=== PATIENT | female | born 1940 | race African-American/Black ===

== ENCOUNTER 2016-07-26 10:03 | Outpatient (RCR) | payer MEDICARE, OTHER ==
[~2016-07-26 10:03] MED LIST: ALEVE220 M2 PO; AMLODIPINE BESY10 MG ORAL; BP med; DOCUSATE SODIU250 MG ORAL; FOLIC ACID1 MG ORAL; HYDRALAZINE HC100 MG ORAL; HYDROCODON-ACE1 EA16 ORAL; LINZESS145 MCG PO; LISINOPRIL20 MG ORAL; LORATADINE10 M2 PO; METOPROLOL TART25 MG ORAL; PAMELOR10 MG ORAL; PRILOSEC OTC20 MG ORAL; VITAMIN D1000 UNI1 ORAL
== END 2016-08-07 | disposition home or self-care (01) ==
LOC: PTY 10:03
DX: M51.36 Other intervertebral disc degeneration, lumbar region (principal)
CPT/HCPCS: 97110; G0283

== ENCOUNTER → 2016-11-01 | Outpatient (CLI) | payer MEDICARE, OTHER ==
--- NOTE | 2016-11-01 13:31 | GI Progress Note ---
Assessment/Plan Problems: (1) Constipation ICD Codes: K59.00 - Constipation, unspecified SNOMED: 51539950 (2) Hepatitis C ICD Codes: B19.20 - Unspecified viral hepatitis C without hepatic coma SNOMED: 52809515 (3) H/O Spinal surgery ICD Codes: Z98.89 - Other specified postprocedural states SNOMED: 47629898, 555437040 Status: stable Status Narrative Seen with Dr. Forrester. Assessment/Plan Flex sig with banding scheduled 11/16/16. - CLD & [employer] prep instructions given. lab draw: repeat Hep C quant cont linzess Subjective Subjective constipation >> linzess working well, but occasionally gets stomach cramps Objective T 98 BP 124/58 P 78 99 RA General Appearance: no apparent distress, alert Cardiovascular: normal rate Respiratory/Chest: normal breath sounds, no respiratory distress Abdominal Exam: normal bowel sounds, non tender, soft Extremities: normal range of motion Lulu Rice N.P. Nov 01, 2016 13:31
[2016-11-01 14:42] VITALS: BP 124/58
== END | disposition home or self-care (01) ==
LOC: PAN 12:48
DX: K59.00 Constipation, unspecified (principal); B19.20 Unspecified viral hepatitis C without hepatic coma; Z98.890 Other specified postprocedural states
CPT/HCPCS: 99211

== ENCOUNTER 2016-12-14 09:43 | Day surgery (SDC) | payer MEDICARE, OTHER ==
[~2016-12-14] VITALS: Ht 165.1 cm; Wt 74.8 kg
[2016-12-14 10:20] VITALS: BP 119/55
--- NOTE | 2016-12-14 11:50 | Pre-Procedure Note/Attestation ---
Pre-Procedure Note/Attestation Complete Prior to Procedure Planned Procedure: not applicable Procedure Narrative: flex sig Indications for Procedure Pre-Operative Diagnosis: rectal bleed Attestation I attest that I discussed the nature of the procedure; its benefits; risks and complications; and alternatives (and the risks and benefits of such alternatives ), prior to the procedure, with the patient (or the patient's legal marketing development representative). I attest that, if there was a reasonable possibility of needing a blood transfusion, the patient (or the patient's legal marketing development representative) was given the [facility] standardized written summary, pursuant to the Louie Numidia Blood Safety Act ([place] Health and Safety Code # 1645, as amended). I attest that I re-evaluated the patient just prior to the surgery and that there has been no change in the patient's H&P, except as documented below: MADAN CAIN Dec 14, 2016 11:50
--- NOTE | 2016-12-14 11:50 | Short Stay Surgery H&P ---
History of Present Illness History of Present Illness Chief Complaint rectal bleed HPI Sophia Collins is a 76 year old female who was admitted on for Hemorrhoids Patient History Allergies: Coded Allergies: No Known Allergies (Unverified , 05/17/15) PAST MEDICAL HISTORY: (1) H/O Spinal surgery (2) Constipation (3) Hepatitis C (4) HTN (hypertension) (5) Hepatitis B vaccination not up to date Past Surgeries: Social History: Medication History Scheduled Amlodipine Besylate* (Amlodipine Besylate*), 10 MG ORAL DAILY, (Reported) Lisinopril (Lisinopril*), 40 MG ORAL DAILY, (Reported) Metoprolol Tartrate* (Metoprolol Tartrate*), 25 MG ORAL EVERY 12 HOURS, ( Reported) Review of Systems Cardiovascular: Reports: no symptoms Respiratory: Reports: no symptoms Skeletal: Reports: no symptoms Gastrointestinal: Reports: no symptoms Genitourinary: Reports: no symptoms Neurologic: Reports: no symptoms Endocrine: Reports: no symptoms Hematologic: Reports: no symptoms Physical Exam Vital Signs Last Vital Signs Date Time Temp Pulse Resp B/P Pulse Ox O2 Delivery O2 Flow Rate FiO2 12/14/16 10:20 97.6 56 20 119/55 98 Room Air Skin: normal HENT: normal Heart: normal Lungs: normal Abdomen: normal Extremities: normal Plan Plan of Care flex sig Final Diagnosis: Attestation Are the patient's medical conditions optimized for surgery? Attestation Response: yes MADAN CAIN Dec 14, 2016 11:50
[2016-12-14 12:12] VITALS: BP 132/63
[2016-12-14 12:17] VITALS: BP 140/70
[2016-12-14 12:22] VITALS: BP 137/69
[2016-12-14 12:30] LABS: BASOPHILS % (AUTO) 0.7 % (0.0-2.0); EOSINOPHILS % (AUTO) 0.7 % (0.0-3.0); LYMPHOCYTES % (AUTO) 25.8 % (20.0-45.0); MEAN CORPUSCULAR HEMOGLOBIN 31.2 PG (27.0-31.0); MEAN CORPUSCULAR HGB CONC 32.8 G/DL (32.0-36.0); MEAN CORPUSCULAR VOLUME 95 FL (80-99); MEAN PLATELET VOLUME 8.5 FL (6.5-10.1); MONOCYTES % (AUTO) 6.6 % (1.0-10.0); NEUTROPHILS % (AUTO) 66.2 % (45.0-75.0); PLATELET COUNT 114 K/UL (150-450); RED BLOOD COUNT 4.32 M/UL (4.20-5.40); RED CELL DISTRIBUTION WIDTH 13.7 % (11.6-14.8); WHITE BLOOD COUNT 4.7 K/UL (4.8-10.8)
[2016-12-14] MEDS ORDERED: Norco 5mg/325mg tab ORAL ONE (12:30)
--- NOTE | 2016-12-14 12:30 | Endoscopy Procedure Note ---
Endoscopy Procedure Note Indication for Procedure: rectal bleed Procedures Performed: flexible sigmoidoscopy Operative Findings/Diagnosis: hemorrhoids Specimen: none Pt Tolerated Procedure Well: Yes Estimated Blood Loss: none Anesthesiologist: none Implant(s) used?: No 50 yrs or older w/o bx or poly: Not Applicable 10yrs. F/U not recommended: Not Applicable MADAN CAIN Dec 14, 2016 12:30
[2016-12-14 12:35] VITALS: BP 138/72
[2016-12-14 12:42] LABS: ALANINE AMINOTRANSFERASE 8 U/L (3-33); ALBUMIN/GLOBULIN RATIO 1.1 (1.0-2.7); ANION GAP 14 (5-15); ASPARTATE AMINO TRANSFERASE 16 U/L (5-40); CALCIUM 9.4 mg/dL (8.6-10.2); CARBON DIOXIDE 26 mEQ/L (20-30); CHLORIDE 105 mEQ/L (98-107); CREATININE 0.7 mg/dL (0.5-0.9); HEMOLYSIS 4; SODIUM 145 mEQ/L (135-145); TOTAL PROTEIN 7.6 g/dL (6.6-8.7)
[2016-12-14 13:05] VITALS: BP 141/69
--- NOTE | 2016-12-14 19:00 | Procedure Note ---
DATE OF PROCEDURE: 12/14/2016 SURGEON: Rob Forrester M.D. PROCEDURE: Flexible colonoscopy with banding of hemorrhoids. ANESTHESIA: No anesthesia was given. INDICATIONS: Internal hemorrhoids with bleeding. The procedure, risks, benefits, and possible consequences, including hemorrhage, aspiration, perforation and infection, and alternative treatments, were explained to the patient/legal guardian by Dr. Rob Forrester and the patient/legal guardian understood and accepted these risks. PROCEDURE IN DETAIL: First, a rectal exam was performed, which was positive for external and internal hemorrhoids. Then scope was advanced from rectum into the sigmoid colon. Retroflexion was performed in the rectum, which showed evidence of at least 2 or 3 large internal hemorrhoids. At this time, the scope was removed, banding device was placed, and the scope was reintroduced again into the rectum and total of 2 bands were placed in the rectum. The patient tolerated the procedure without any complication. SUMMARY OF FINDINGS: 1. Internal hemorrhoids and external hemorrhoids. 2. Banding of internal hemorrhoids x2. RECOMMENDATIONS: 1. Pain management. 2. Bowel regimen. 3. The patient to call office if she has any pain or bleeding. Rob Forrester M.D. DR: ALECIA JOB#: [id number] CC:
[2016-12-18 18:13] LABS: HEPATITIS C QUANT HCV Not Detected IU/mL (.)
== END 2016-12-14 13:50 | disposition home or self-care (01) ==
LOC: GAS 09:43
DX: K64.8 Other hemorrhoids (principal); K64.4 Residual hemorrhoidal skin tags; K59.00 Constipation, unspecified; I10 Essential (primary) hypertension; Z86.19 Personal history of other infectious and parasitic diseases
CPT/HCPCS: 36415; 80053; 85025; 87522; 93005

== ENCOUNTER 2016-12-24 13:01 | Outpatient (CLI) | payer MEDICARE, OTHER ==
--- NOTE | 2016-12-24 13:54 | GI Progress Note ---
Assessment/Plan Assessment/Plan Rx Anusol HC cream refer to Dr. Amin for pain mgmt RTC x 3 month Endoscopy Procedure Note Indication for Procedure: rectal bleed Procedures Performed: flexible sigmoidoscopy with banding x 2 Operative Findings/Diagnosis: hemorrhoids MADAN CAIN - Dec 14, 2016 12:30 Subjective Subjective rectal pain better still minimal bleeding after BM taking linzess no stool softeners Objective T 98.1 BP 100/53 P 58 100 RA General Appearance: no apparent distress, alert Cardiovascular: normal rate Respiratory/Chest: normal breath sounds, no respiratory distress Abdominal Exam: normal bowel sounds, non tender, soft Extremities: normal range of motion - with Lulu Shah N.P. Dec 24, 2016 13:54 MADAN CAIN Dec 26, 2016 12:38
== END 2016-12-24 13:30 | disposition home or self-care (01) ==
LOC: PAN 13:01
DX: K62.5 Hemorrhage of anus and rectum (principal)
CPT/HCPCS: 99211

== ENCOUNTER 2017-03-19 10:59 | Outpatient (CLI) | payer MEDICARE, OTHER ==
--- NOTE | 2017-03-19 11:32 | GI Progress Note ---
Assessment/Plan Problems: (1) Hemorrhoids ICD Codes: K64.9 - Unspecified hemorrhoids SNOMED: 08065866 (2) Hepatitis C ICD Codes: B19.20 - Unspecified viral hepatitis C without hepatic coma SNOMED: 35106186 (3) HTN (hypertension) ICD Codes: I10 - Essential (primary) hypertension SNOMED: 23315056 (4) Constipation ICD Codes: K59.00 - Constipation, unspecified SNOMED: 37010848 (5) Gallstone ICD Codes: K80.20 - Calculus of gallbladder without cholecystitis without obstruction SNOMED: 361876622 (6) Hernia, ventral ICD Codes: K43.9 - Ventral hernia without obstruction or gangrene SNOMED: 208133621 (7) Colonic polyp ICD Codes: K63.5 - Polyp of colon SNOMED: 80017901 Status: stable Status Narrative Seen with Dr. Forrester. Assessment/Plan Endoscopy Procedure Note Indication for Procedure: rectal bleed Procedures Performed: flexible sigmoidoscopy with banding x 2 Operative Findings/Diagnosis: hemorrhoids MADAN FORRESTER - Dec 14, 2016 12:30 s/p hemorrhoidal banding December 2015 Assessment/Plan lab draw today >> CBC, CMP ordered abdominal U/S cont Anusol HC cream RTC after imaging study Subjective Subjective abdominal pain >> LUQ/LLQ GERD constipation rectal bleed, s/p banding december 2016 fatigue Edward rincon completed in October 2015 Objective T 98.0 BP 11/56 P 62 General Appearance: no apparent distress, alert Cardiovascular: normal rate Respiratory/Chest: normal breath sounds, no respiratory distress Abdominal Exam: normal bowel sounds Lulu Rice NTiffany Mar 19, 2017 11:32
[2017-03-19 11:33] VITALS: BP 111/56
[2017-03-19] MEDS ORDERED: PEPTO-BISM525 MG/15 PO (11:39)
[2017-03-19] MEDS ORDERED: PAMELOR25 MG ORAL (11:39)
[2017-03-19] MEDS ORDERED: OMEPRAZOLE20 M2 ORAL (11:39)
== END 2017-03-19 12:15 | disposition home or self-care (01) ==
LOC: PAN 10:59
DX: K64.9 Unspecified hemorrhoids (principal); B19.20 Unspecified viral hepatitis C without hepatic coma; I10 Essential (primary) hypertension; K59.00 Constipation, unspecified; K80.20 Calculus of gallbladder without cholecystitis without obstruction; K43.9 Ventral hernia without obstruction or gangrene; K63.5 Polyp of colon; K21.9 Gastro-esophageal reflux disease without esophagitis; R53.83 Other fatigue
CPT/HCPCS: 99211

== ENCOUNTER → 2017-03-22 | Outpatient (CLI) | payer MEDICARE, OTHER ==
[~2017-03-22] MED LIST changes: +OMEPRAZOLE20 M2 ORAL; +PAMELOR25 MG ORAL; +PEPTO-BISM525 MG/15 PO
[2017-03-22 11:07] LABS: BASOPHILS % (AUTO) 0.5 % (0.0-2.0); EOSINOPHILS % (AUTO) 0.6 % (0.0-3.0); LYMPHOCYTES % (AUTO) 26.7 % (20.0-45.0); MEAN CORPUSCULAR HEMOGLOBIN 31.8 PG (27.0-31.0); MEAN CORPUSCULAR HGB CONC 32.9 G/DL (32.0-36.0); MEAN CORPUSCULAR VOLUME 97 FL (80-99); MEAN PLATELET VOLUME 7.1 FL (6.5-10.1); MONOCYTES % (AUTO) 5.9 % (1.0-10.0); NEUTROPHILS % (AUTO) 66.3 % (45.0-75.0); PLATELET COUNT 127 K/UL (150-450); RED CELL DISTRIBUTION WIDTH 13.2 % (11.6-14.8); WHITE BLOOD COUNT 5.5 K/UL (4.8-10.8)
[2017-03-22 11:32] LABS: ALANINE AMINOTRANSFERASE 6 U/L (3-33); ALBUMIN/GLOBULIN RATIO 1.1 (1.0-2.7); ANION GAP 13 (5-15); ASPARTATE AMINO TRANSFERASE 13 U/L (5-40); CALCIUM 9.3 mg/dL (8.6-10.2); CARBON DIOXIDE 25 mEQ/L (20-30); CHLORIDE 105 mEQ/L (98-107); CREATININE 0.9 mg/dL (0.5-0.9); HEMOLYSIS 3; POTASSIUM 4.1 mEQ/L (3.4-4.9); SODIUM 143 mEQ/L (135-145); TOTAL PROTEIN 7.7 g/dL (6.6-8.7)
--- NOTE | 2017-03-22 12:55 | Diagnostic Imaging Report ---
Indication: Upper abdominal pain Technique: Chavez-scale and duplex images of the upper abdomen were obtained Comparison: None Findings: Gallbladder demonstrates gallstones. Gallbladder wall is borderline thickened. No pericholecystic fluid. Sonographic Sanchez's sign is negative. Common bile duct measures 5 mm in diameter. No intrahepatic biliary ductal dilatation. Liver demonstrates slightly coarsened echogenicity. The surface nodularity. Portal vein and hepatic veins are patent. Pancreas is unremarkable. Spleen is unremarkable. Left kidney measures 11 cm in length. Right kidney measures 9.5 cm length. Both kidneys demonstrate normal echogenicity. There is no hydronephrosis. Right kidney demonstrates a 2.2 cm cyst . Non-aneurysmal abdominal aorta . Impression: Cholelithiasis. Borderline gallbladder wall thickening raises possibility of acute cholecystitis. Consider nuclear medicine hepatobiliary scan if there is high clinical suspicion Negative for biliary ductal dilatation Mildly coarsened hepatic echotexture, nonspecific but could indicate hepatocellular disease Incidental finding of right renal cyst
[2017-03-24 19:54] LABS: HEPATITIS C QUANT HCV Not Detected IU/mL (.)
== END | disposition home or self-care (01) ==
LOC: ULS 10:02
DX: R10.9 Unspecified abdominal pain (principal); B19.20 Unspecified viral hepatitis C without hepatic coma; K80.80 Other cholelithiasis without obstruction; N28.1 Cyst of kidney, acquired
CPT/HCPCS: 36415; 76700; 80053; 85025; 87522

== ENCOUNTER 2017-04-02 10:55 | Outpatient (CLI) | payer MEDICARE, OTHER ==
--- NOTE | 2017-04-02 11:16 | GI Progress Note ---
Assessment/Plan Problems: (1) Hepatitis C ICD Codes: B19.20 - Unspecified viral hepatitis C without hepatic coma SNOMED: 56400375 (2) Hemorrhoids ICD Codes: K64.9 - Unspecified hemorrhoids SNOMED: 76558959 (3) Constipation ICD Codes: K59.00 - Constipation, unspecified SNOMED: 78700515 (4) H/O Spinal surgery ICD Codes: Z98.89 - Other specified postprocedural states SNOMED: 52795361, 334208160 Status: stable Status Narrative Seen with Dr. Forrester. Assessment/Plan Endoscopy Procedure Note Indication for Procedure: rectal bleed Procedures Performed: flexible sigmoidoscopy with banding x 2 Operative Findings/Diagnosis: hemorrhoids MADAN FORRESTER - Dec 14, 2016 12:30 s/p hemorrhoidal banding December 2015 Assessment/Plan Hep C quant reviewed >> negative CBC, CMP reviewed abdominal U/S reviewed >> cholelithiasis without any symptoms rx Linzess rx omeprazole recommend Align cont Anusol HC cream RTC x 1 month Subjective Subjective abdominal pain >> mid abd pain ( ventral hernia) constipation rectal bleed with BM, however decreased no abdominal pain x 2 days Objective T 97.8 BP 115/58 P 54 General Appearance: no apparent distress, alert Cardiovascular: normal rate Respiratory/Chest: normal breath sounds, no respiratory distress Abdominal Exam: normal bowel sounds, non tender, soft Extremities: other - wheelchair bound Lulu Rice N.P. Apr 02, 2017 11:15
[2017-04-02 11:23] VITALS: BP 115/58
== END 2017-04-02 11:40 | disposition home or self-care (01) ==
LOC: PAN 10:55
DX: K64.9 Unspecified hemorrhoids (principal); K59.00 Constipation, unspecified; B19.20 Unspecified viral hepatitis C without hepatic coma; Z98.890 Other specified postprocedural states
CPT/HCPCS: 99211

== ENCOUNTER 2017-05-28 10:43 | Outpatient (CLI) | payer MEDICARE, OTHER ==
[2017-05-28 11:06] VITALS: BP 116/61
[2017-05-28] MEDS ORDERED: LINZESS145 MCG PO (11:08)
[2017-05-28] MEDS ORDERED: TYLENOL EXTRA500 MG ORAL (11:08)
--- NOTE | 2017-05-28 11:26 | GI Progress Note ---
Assessment/Plan Problems: (1) Hemorrhoids ICD Codes: K64.9 - Unspecified hemorrhoids SNOMED: 31594933 (2) Constipation ICD Codes: K59.00 - Constipation, unspecified SNOMED: 82509632 (3) Hernia, ventral ICD Codes: K43.9 - Ventral hernia without obstruction or gangrene SNOMED: 788415637 (4) Hepatitis C ICD Codes: B19.20 - Unspecified viral hepatitis C without hepatic coma SNOMED: 93368043 (5) H/O Spinal surgery ICD Codes: Z98.89 - Other specified postprocedural states SNOMED: 86642571, 525557667 Status: stable Status Narrative Seen with Dr. Forrester. Assessment/Plan s/p hemorrhoidal banding December 2015 Hep C quant reviewed >> negative CBC, CMP reviewed abdominal U/S reviewed >> cholelithiasis without any symptoms being seen by pain mgmt, Dr. Montes refused repeat banding Assessment/Plan refill Anusol HC cont Linzess cont omeprazole recommend Align RTC x 3 month Subjective Subjective abdominal pain GERD >> omeprazole 20mb constipation >> Linzess 145 rectal bleeding >> supp does not work, has daily episodes back pain Objective Last 24 Hour Vital Signs Date Time Temp Pulse Resp B/P (MAP) Pulse Ox O2 Delivery O2 Flow Rate FiO2 05/28/17 11:06 98.1 65 18 116/61 General Appearance: WD/WN, no apparent distress, alert Cardiovascular: normal rate Respiratory/Chest: normal breath sounds, no respiratory distress Abdominal Exam: normal bowel sounds, non tender, soft Extremities: non-tender Lulu Rice NTiffany May 28, 2017 11:26
== END 2017-05-28 11:15 | disposition home or self-care (01) ==
LOC: PAN 10:43
DX: K64.9 Unspecified hemorrhoids (principal); K59.00 Constipation, unspecified; K43.9 Ventral hernia without obstruction or gangrene; B19.20 Unspecified viral hepatitis C without hepatic coma; Z98.890 Other specified postprocedural states; K21.9 Gastro-esophageal reflux disease without esophagitis
CPT/HCPCS: 99211

== ENCOUNTER 2017-10-28 13:16 | Outpatient (CLI) | payer MEDICARE, OTHER ==
[~2017-10-28 13:16] MED LIST changes: +TYLENOL EXTRA500 MG ORAL
--- NOTE | 2017-10-28 16:22 | GI Progress Note ---
Assessment/Plan Problems: (1) GERD (gastroesophageal reflux disease) ICD Codes: K21.9 - Gastro-esophageal reflux disease without esophagitis SNOMED: 634669352 (2) Abdominal pain ICD Codes: R10.9 - Unspecified abdominal pain SNOMED: 05033353 (3) Rectal bleed ICD Codes: K62.5 - Hemorrhage of anus and rectum SNOMED: 65914688 (4) Irregular heart beats ICD Codes: I49.9 - Cardiac arrhythmia, unspecified SNOMED: 732461541, 115723996, 882125666 (5) Constipation ICD Codes: K59.00 - Constipation, unspecified SNOMED: 05398144 Status: unchanged Status Narrative Seen with Dr. Forrester. Assessment/Plan needs cardiology referral for irregular heartbeat. plan for EGD after cardiac clearance cont linzess Rx Dexilant 60mg Rx tramadol 50 mg RTC after clearance Subjective Subjective Abdominal pain after PO intake has continuous rectal bleeding Omeprazole has no effect on linzess Objective T 98.5 BP 93/55 P 61 99 RA General Appearance: WD/WN, no apparent distress, alert Cardiovascular: normal rate Respiratory/Chest: normal breath sounds, no respiratory distress Abdominal Exam: normal bowel sounds, non tender, soft Extremities: non-tender Lulu Rice N.P. Oct 28, 2017 16:22
== END 2017-10-28 13:40 | disposition home or self-care (01) ==
LOC: PAN 13:16
DX: K21.9 Gastro-esophageal reflux disease without esophagitis (principal); R10.9 Unspecified abdominal pain; K62.5 Hemorrhage of anus and rectum; I49.9 Cardiac arrhythmia, unspecified; K59.00 Constipation, unspecified
CPT/HCPCS: 99211